=== PATIENT | male | born 1955 | race Caucasian/White ===

== ENCOUNTER 2017-05-20 07:52 | Observation (INO) | payer OTHER ==
--- NOTE | ~2017-05-20 | HEMODYNAMI ---
PATIENT:JAYSON PRUITT MEDICAL RECORD: [id number] : 53 LOCATION:[facility] D.2114 ADMISSION DATE: 05/20/17 Generatedon:05/21/20179:34 Patient name: JAYSON PRUITT Patient #: [id number] SSN: : 1955 Date of study: 05/21/2017 Page: Of Hemodynamic Procedure Report Patient Data Patient Demographics Procedure consent was obtained First Name: JAYSON Gender: Male Last Name: EDMOND : 1955 Middle Initial: E Age: 62 year(s) Patient #: [id number] Race: Unknown Additional ID: [id number] Contact details Address: [address] [place] [address] State: [place] City: [facility] Zip code: [address] Past Medical History Allergies: No known allergies Admission Admission Data Admission Date: 05/20/2017 Admission Time: 10:01 Room #: D.2114 Height (in.): 187.96 BSA: 3.32 (m2) Height (cm.): 477.42 BMI: 2.2 (kg/m2) Weight (lbs.): 110.48 Weight (kg.): 50.11 Procedure Procedure Types Cath Procedure Diagnostic Procedure [facility] w/Coronaries PCI Procedure Coronary Stent Initial Miscellaneous Procedures Moderate Sedation up to 15 minutes Procedure Description Procedure Date Procedure Date: 05/21/2017 Procedure Start Time: 9:18 Procedure End Time: 9:33 Procedure Staff Name Function Rupert Mccarty MD Performing Physician Salvador Nj RT Scrub Nathaniel Valera RN Nurse Abigail House RT Monitor Procedure Data Cath Procedure Fluoroscopy Diagnostic fluoroscopy Total fluoroscopy Time: 4.7 time: 4.7 min min Diagnostic fluoroscopy Total fluoroscopy dose: 590 dose: 590 mGy mGy Contrast Material Contrast Material Type Amount (ml) Isovue 300 68 Entry Location Entry Primary Successful Side Size Upsize Upsize Entry Closure Chance ccessful Closure Location (Fr) 1 (Fr) 2 (Fr) Remarks Device Remarks Radial Right 6 Fr Mechanical tr artery Short Compression Estimated blood loss: 10 ml Diagnostic catheters Device Type Used For End Catheter Placement Diagnostic Terumo 5Fr Procedure [place] 110cm catheter Procedure Complications No complications Procedure Medications Medication Administration Route Dosage Oxygen NC 2 l/min Heparin Flush Bag added to field 2 bags (1000units/500ml NS) 0.9% NaCl I.V. 100 ml/hr Radial Cocktail added to field 1 syringe (Verapomil 2mg/Nitro 400mcg/Heparin 1500units) Fentanyl I.V. 50 mcg Versed I.V. 1 mg Radial Cocktail I.A. 1 syringe (Verapomil 2mg/Nitro 400mcg/Heparin 1500units) Fentanyl I.V. 50 mcg Versed I.V. 1 mg Heparin Bolus I.V. 5000 units Integrilin (Bolus I.V. 10.2 ml 2mg/ml) Integrilin (Bolus wasted 9.8 ml 2mg/ml) Plavix P.O. 75 mg Hemodynamics Rest BSA: 3.32 (m2) O2 Consumption: Estimated: 377.78 (ml/min) O2 Consumption indexed : Estimated:113.79 (ml/min/m) Heart Rate: 62 (bpm) Snapshots Pre Cath Intra NCS Post Cath Vital Signs Time Heart Resp SPO2 etCO2 NIBP (mmHg) Rhythm Pain Sedation Rate (ipm) (%) (mmHg) Status Level (bpm) 8:53:36 61 18 99 0 137/88(109) NSR 0 (11) 10(A) , No pain 8:58:26 64 18 98 33 145/87(117) NSR 0 (11) 10(A) , No pain 9:03:15 63 21 97 33 140/83(120) NSR 0 (11) 10(A) , No pain 9:08:04 61 19 96 10.5 133/89(105) NSR 0 (11) 10(A) , No pain 9:12:51 60 17 95 18 138/79(104) NSR 0 (11) 10(A) , No pain 9:17:35 62 16 94 30 118/78(97) NSR 0 (11) 10(A) , No pain 9:22:18 68 18 93 32.2 110/66(92) NSR 0 (11) 9(A) , No pain 9:27:01 69 18 93 9.7 117/73(86) NSR 0 (11) 9(A) , No pain 9:32:24 64 18 94 34.5 128/75(101) NSR 0 (11) 9(A) , No pain Medications Time Medication Route Dose Verified Delivered Reason Notes Effectiveness by by 9:04:12 Oxygen NC 2 l/min Rupert Armstrong Per physician St. Dk Valera RN, MD 9:04:25 Heparin Flush added 2 bags Rupert Armstrong used for Bag to St. Dk Valera RN procedure (1000units/500ml field CHRISTENSEN NS) 9:04:36 0.9% NaCl I.V. 100 Rupert Armstrong Per physician ml/hr St. Dk Valera RN, MD 9:04:46 Radial Cocktail added 1 Rupert Armstrong used for (Verapomil to syringe St. Dk Valera RN procedure 2mg/Nitro field CHRISTENSEN 400mcg/Heparin 1500units) 9:18:05 Fentanyl I.V. 50 mcg Rupert Armstrong for sedation St. Dk Valera RN, MD 9:18:11 Versed I.V. 1 mg Rupert Armstrong for sedation St. Dk Valera RN, MD 9:20:34 Radial Cocktail I.A. 1 Rupert Rupert for (Verapomil syringe St. Dk Mccarty vasodilation 2mg/Ru CHRISTENSEN MD 400mcg/Heparin 1500units) 9:20:42 Fentanyl I.V. 50 mcg Rupert Armstrong for sedation St. Dk Valera RN, MD 9:20:49 Versed I.V. 1 mg Rupert Armstrong for sedation St. Dk Valera RN, MD 9:25:55 Heparin Bolus I.V. 5000 [address] for units St. Dk Valera RN anticoagulation 9:26:18 Integrilin I.V. 10.2 ml Rupert Armstrong for (Bolus 2mg/ml) St. Dk Valera RN antiplatelet therapy 9:26:28 Integrilin wasted 9.8 ml Rupert Armstrong for (Bolus 2mg/ml) St. Dk Valera RN antiplatelet therapy 9:31:58 Plavix P.O. 75 mg Ru[address] Armstrong for St. Dk Valera RN antiplatelet therapy Procedure Log Time Note 8:30:03 Nathaniel Valera RN sent for patient. Start room use. 8:30:55 Patient Height : 187.96 inches 8:31:02 Patient Weight : 110.48 lbs 8:31:18 Diagnostic Cath Status : Elective 8:46:14 Time tracking: Regular hours 8:46:18 Plan of Care:Hemodynamics will remain stable., Cardiac rhythm will remain stable., Comfort level will be maintained., Respiratory function will remain adequate., Patient/ family verbilizes understanding of procedure., Procedure tolerated without complication., Recovers from procedure without complications.. 8:46:31 Patient received from PCU to CCL 1 Alert and oriented. Tansferred to table in Supine position. 8:46:33 Warm blankets applied, and dianelys hugger turned on for patient comfort. 8:46:33 Correct patient and procedure confirmed by team. 8:46:34 Signed procedure consent form obtained from patient. 8:46:35 ECG and BP/O2 sat monitors applied to patient. 8:52:29 Vital chart was started 9:00:34 Baseline sample Acquired. 9:00:38 Rhythm: sinus rhythm 9:00:40 Full Disclosure recording started 9:00:49 H&P Date Dictated: 05/20/2017 Within 30 days and on chart.. 9:00:53 Pre-procedure instructions explained to patient. 9:00:56 Family in patients room. 9:00:59 Patient NPO since Midnight. 9:01:08 Patient allergic to No known allergies 9:01:12 Was the patient premedicated? Yes 9:01:13 Is patient on blood thinner?Yes 9:01:16 ACC The patient was administered the following blood thiners within the last 24 hours: ACCAspirin 9:01:18 Patient diabetic? No. 9:01:22 Snore? Yes 9:01:23 Sleep apnea? No 9:01:32 Patient pain scale 0/10 ?. 9:01:39 IV patent on arrival in right forearm with 0.9% NaCl at O. 9:01:43 Lab results completed and on chart. 9:01:48 Right Radial & Right Groin area was prepped with chlora-prep and draped in sterile fashion 9:01:49 Alarms reviewed by R. N. 9:01:50 Sharps counted by scrub and verified by R.N. 9:01:51 Physician paged 9:04:12 Oxygen 2 l/min NC was administered by Nathaniel Valera RN; Per physician; 9:04:25 Heparin Flush Bag (1000units/500ml NS) 2 bags added to field was administered by Nathaniel Valera RN; used for procedure; 9:04:36 0.9% NaCl 100 ml/hr I.V. was administered by Nathaniel Valera RN; Per physician; 9:04:46 Radial Cocktail (Verapomil 2mg/Nitro 400mcg/Heparin 1500units) 1 syringe added to field was administered by Nathaniel Valera RN; used for procedure; 9:17:30 Physician arrived 9:17:31 --------ALL STOP TIME OUT------ 9:17:32 Final Timeout: patient, procedure, and site verified with staff and physician. All members of the team are in agreement. 9:17:41 Right Radial & Right Groin site verified by team. 9:17:45 Sedation plan: IV Moderate Sedation Versed, Fentanyl 9:17:57 Use device set Radial Dx 9:18:02 Procedure started. 9:18:05 Fentanyl 50 mcg I.V. was administered by Nathaniel Valera RN; for sedation; 9:18:11 Versed 1 mg I.V. was administered by Nathaniel Valera RN; for sedation; 9:18:14 Local anesthetic to right radial artery with Lidocaine 2% by Rupert Mccarty MD.INITIAL ACCESS ONLY 9:18:28 A 6 Fr Short sheath was inserted into the Right Radial artery 9:19:20 Acist Syringe opened to sterile field. 9:19:20 Medline Cath Pack opened to sterile field. 9:19:21 Bag Decanter opened to sterile field. 9:19:21 Terumo 6Fr Slender Glidesheath opened to sterile field. 9:19:21 St Champ 260cm J .035 wire opened to sterile field. 9:19:22 Acist Hand Control opened to sterile field. 9:19:22 Acist Manifold opened to sterile field. 9:19:23 Tegaderm 4 x 4 opened to sterile field. 9:19:23 MBrace Wrist Support opened to sterile field. 9:20:34 Radial Cocktail (Verapomil 2mg/Nitro 400mcg/Heparin 1500units) 1 syringe I.A. was administered by Rupert Mccarty MD; for vasodilation; 9:20:35 A Diagnostic Terumo 5Fr [place] 110cm catheter was advanced over the wire and used for Procedure. 9:20:42 Fentanyl 50 mcg I.V. was administered by Nathaniel Valera RN; for sedation; 9::49 Versed 1 mg I.V. was administered by Nathaniel Valera RN; for sedation; 9::49 RCA angiography performed. 9:21:02 LCA angiography performed. 9:22:19 Catheter removed. 9:23:18 Proceeding to intervention. 9:23:28 Cordis 6FR XBLAD 3.5 guide catheter opened to sterile field. 9:23:44 [employer] BasixCompak Inflation Kit opened to sterile field. 9:23:45 Jacob [place] 300cm 0.014 guide wire opened to sterile field. 9::58 6 Fr XBLAD 3.5 guide catheter was inserted over the wire 9:24:02 COUG wire advanced. 9::53 Wire advanced across lesion. 9:25:55 Heparin Bolus 5000 units I.V. was administered by Nathaniel Valera RN; for anticoagulation; 9::18 Integrilin (Bolus 2mg/ml) 10.2 ml I.V. was administered by Nathaniel Valera RN; for antiplatelet therapy; 9::28 Integrilin (Bolus 2mg/ml) 9.8 ml wasted was administered by Nathaniel Valera RN; for antiplatelet therapy; 9:29:47 Inflation Number: 1 A Bassem OTW 3.0 x 26 stent was prepped and advanced across the Mid LAD. The stent was deployed at 14 STACEY for 0:33 (min:sec). 9:30:16 Wire removed. 9:30:17 Guide catheter removed. 9:30:26 Terumo TR Band Standard opened to sterile field. 9:31:27 Sheath removed intact; hemostasis achieved with Mechanical Compression to the Right Radial artery. 9:31:32 Procedure ended.(Physican Out) 9:31:48 Fluoroscopy time 04.70 minutes. ::53 Fluoroscopy dose: 590 mGy 9::53 Flurop Dose total: 590 9::58 Plavix 75 mg P.O. was administered by Nathaniel Valera RN; for antiplatelet therapy; 9:31:59 Contrast amount:Isovue 300 68ml. 9:32:01 Sharps counted by scrub and verified by R.N. 9:32:06 TR band inflated with 10cc of air. 9:32:07 Insertion/operative site no bleeding no hematoma. 9:32:10 Post Procedure Pulses reassessed and unchanged 9:32:17 Post procedure rhythm: unchanged. 9:32:20 Estimated blood loss: 10 ml 9:32:26 Post procedure instruction explained to patient.Patient verbalizes understanding. 9:32:37 Procedure type changed to Cath procedure, Diagnostic procedure, LHC, LHC w/Coronaries, PCI procedure, Coronary Stent Initial, Miscellaneous Procedures, Moderate Sedation up to 15 minutes 9:32:41 Procedure and supply charges have been captured, reviewed, submitted and are correct. 9:32:48 Procedure Complication : No complications 9:32:53 Vital chart was stopped 9:32:56 See physician's report for complete and final results. 9:32:59 Report given to [facility]. 9:33:05 Patient transfered to [facility] with Bed. 9:33:08 Procedure ended. 9:33:08 Full Disclosure recording stopped 9:33:11 End room use (Document Last) Intervention Summary Intervention Notes Time ActionType Lesion and Equipment Action# Pressure Duration Attributes Used 9:29:47 Place stent Mid LAD [place] OTW 1 14 00:33 3.0 x 26 stent Device Usage Item Name Manufacture Quantity Catalog Hospital Part Current Minima l Lot# / Number Charge Number Stock Stock Serial# Code Acist Acist 1 77028 447850 353980 393034 20 Syringe Medical Systems Inc Medline Cardinal 1 [id number] 943692 65719 007336 5 Cath Pack Health Bag Microtek 1 042793 19043 542217 5 [employer] Terumo 6Fr Terumo 1 [id number] 933049 441943 024025 [address] Champ 1 623769 085957 958903 930133 30 260cm J .035 wire Acist Hand Acist 1 32234 043376 473594 177858 5 Control Medical Systems Inc Acist Acist 1 50596 766793 093642 081535 5 Manifold Medical Systems Inc Tegaderm 4 3M 1 1626W 488650 207871 809421 5 x 4 MBrace Advanced 1 140-0250-00 621695 67001 531492 5 Wrist Vascular Support Dynamics Diagnostic Terumo 1 65-7231 040238 134224 460705 5 Terumo 5Fr [place] 110cm catheter Cordis 6FR Cardinal 1 [id number] 491888 502487 630557 10 XBLAD 3.5 Health guide catheter [facility] 1 [id number] 314584 478597 938385 15 BasixCompak Medical Inflation Kit Jacob Jacob 1 [id number] 392193 217713 029541 1 [place] Vascular 300cm 0.014 guide wire [place] OTW Medtronic 1 [id number] 037762 4722014 758492 5 [id number] 3.0 x 26 stent Terumo TR Terumo 1 [id number] 845249 231269 561575 40 Band Standard Signature Audit [place] Stage Time Signature Unsigned Intra-Procedure 05/21/2017 Abigail House 9:34:46 AM RT(R) Signatures Monitor : Abigail House Signature : RT Date : Time : [place] [address] [place] [address]
[~2017-05-20 07:52] MED LIST: BAYER CHEWABLE81 MG PO; BETAPACE 80 MG80 MG PO; PRAVASTATIN SOD10 MG PO; XARELTO20 MG PO
[2017-05-20 08:34] LABS: BASOPHILS 0 % (0-2); EOSINOPHILS 2.2 % (0-7); HEMATOCRIT 46.4 % (42.0-54.0); HEMOGLOBIN 15.4 g/dL (13.5-17.5); IMMATURE GRANULOCYTES 0.3 % (0-5); LYMPHOCYTES 11.1 % (15-50); MCH 30.7 pg (26.0-34.0); MCHC 33.2 g/dL (31.0-37.0); MCV 92.6 fL (80.0-100.0); MEAN PLATELET VOLUME 9.9 fL (7.4-10.4); NEUTROPHILS 79.4 % (40-80); RBC 5.01 10x6/uL (4.20-6.10); WBC 6.7 10x3/uL (4.8-10.8)
[2017-05-20 08:35] LABS: PLATELET COUNT 128 10x3/uL (130-400)
[2017-05-20 08:39] LABS: APTT 24.3 SECONDS (22.8-39.4); INR 1.04 (0.85-1.17); PROTIME 13.5 SECONDS (11.6-15.0)
[2017-05-20 08:43] LABS: ALBUMIN 3.6 g/dL (3.4-5.0); ALKALINE PHOSPHATASE 106 U/L (46-116); ALT (SGPT) 65 U/L (10-68); BILIRUBIN - TOTAL 0.89 mg/dL (0.2-1.3); CALC OSMOLALITY 286 mosm/kg (275-300); CALCIUM 8.8 mg/dL (8.5-10.1); CARBON DIOXIDE 24.8 mmol/L (21.0-32.0); CHLORIDE - SERUM 109 mmol/L (98-107); CREATININE - SERUM 1.1 mg/dL (0.6-1.3); GLUCOSE 119 mg/dL (74-106); POTASSIUM - SERUM 4.8 mmol/L (3.5-5.1); PROTEIN - SERUM 7.4 g/dL (6.4-8.2); SODIUM 142 mmol/L (136-145); UREA NITROGEN 21 mg/dL (7-18); eGFR NON AFRICAN AMERICAN 72 mL/min (90-120)
[2017-05-20 08:54] LABS: CKMB 0.8 U/L (0.0-3.6); CREATINE KINASE 83 UL (21-232); TROPONIN-I < 0.017 ng/mL (0.000-0.060)
--- NOTE | 2017-05-20 11:10 | NUR ---
RECEIVED PT VIA W/C FROM ER TO ROOM 2113 RESP UNLABORED SKIN W/D DENIES ANY CHEST PAIN TELEMETRY APPLIED SR RATE 61 NAD NOTED WILL CONTINUE TO MONITOR
[2017-05-20 11:24] VITALS: BP 133/78
[2017-05-20] MEDS ORDERED: LOPRESSOR25 MG PO (12:08)
[2017-05-20 14:22] LABS: CREATINE KINASE 72 UL (21-232)
[2017-05-20 14:23] LABS: TROPONIN-I < 0.017 ng/mL (0.000-0.060)
[2017-05-20 15:31] VITALS: BP 133/78; BMI 30.1
[2017-05-20 16:00] VITALS: BP 128/80
[2017-05-20 20:31] LABS: CKMB 0.6 U/L (0.0-3.6); CREATINE KINASE 72 UL (21-232); TROPONIN-I < 0.017 ng/mL (0.000-0.060)
--- NOTE | 2017-05-20 21:40 | NUR ---
INITIAL ROUNDS COMPLETED AT 1915 HRS. PT DENIED ANY DISCOMFORT. ASSESSMENT COMPLETED 1950 HRS. VSS. SR PER CM HR 66. IV TO RAC AUSTEN. REX CTA. PM MEDS GIVEN. PT STATED HAD HAD DIARRHEA X2. PM SNACK SERVED. PERMITS FOR PSYCHIATRIC HOSPITAL EXPLAINED TO PT. PERMITS SIGNED. PT CURRENTLY WATCHING TV. WILL CONTINUE TO MONITOR. SR UP X2, CALL LIGHT PAULINA REYES.
[2017-05-20 22:15] VITALS: BP 138/76
[2017-05-21] VITALS: BP 116/73
--- NOTE | 2017-05-21 00:14 | NUR ---
PT RESTING WITH EYES CLOSED. RESP EVEN AND REGULAR. SR UP X2, CALL LIGHT WITHIN REACH.
--- NOTE | 2017-05-21 02:20 | NUR ---
PT STATES HAS HAD SOME DIARRHEA. WILL CONTINUE TO MONITOR.
[2017-05-21 02:36] LABS: BASOPHILS 0 % (0-2); EOSINOPHILS 1.5 % (0-7); HEMATOCRIT 50.8 % (42.0-54.0); HEMOGLOBIN 16.9 g/dL (13.5-17.5); IMMATURE GRANULOCYTES 0.2 % (0-5); LYMPHOCYTES 13.5 % (15-50); MCH 30.7 pg (26.0-34.0); MCHC 33.3 g/dL (31.0-37.0); MCV 92.2 fL (80.0-100.0); MONOCYTES 6.8 % (2-11); PLATELET COUNT 161 10x3/uL (130-400); RBC 5.51 10x6/uL (4.20-6.10); RDW 13.9 % (11.5-14.5); WBC 5.5 10x3/uL (4.8-10.8)
[2017-05-21 03:01] LABS: CALC OSMOLALITY 277 mosm/kg (275-300); CALCIUM 9.3 mg/dL (8.5-10.1); CARBON DIOXIDE 20.3 mmol/L (21.0-32.0); CHLORIDE - SERUM 106 mmol/L (98-107); CKMB 0.5 U/L (0.0-3.6); CREATINE KINASE 68 UL (21-232); GLUCOSE 127 mg/dL (74-106); POTASSIUM - SERUM 4.7 mmol/L (3.5-5.1); SODIUM 137 mmol/L (136-145); TROPONIN-I < 0.017 ng/mL (0.000-0.060); UREA NITROGEN 18 mg/dL (7-18); eGFR NON AFRICAN AMERICAN 80 mL/min (90-120)
[2017-05-21 04:00] VITALS: BP 114/69
--- NOTE | 2017-05-21 04:43 | NUR ---
PT RESTING WITH EYES CLOSED. RESP EVEN AND REGULAR. SR UP X2, CALL LIGHT WITHIN REACH.
--- NOTE | 2017-05-21 06:23 | NUR ---
HIBICLENS SHOWER DONE. PT STATED WHEN HE URINATED THE URINE WAS BLOOD TINGED. PT DID NOT SAVE SPECIMEN. VSS THROUGHOUT NIGHT. SR/SB PER CM. DENIES ANY DISCOMFORT EXCEPT DIARRHEA. NPO FOR AM LHC. NEEDS MET; WILL CONTINUE TO MONITOR.
--- NOTE | 2017-05-21 07:30 | NUR ---
RECEIVED PT IN BED AAOX4 RESP UNLABORED DENIES ANY NEEDS OR DISCOMFORT AT THIS TIME
[2017-05-21 08:00] VITALS: BP 110/74
--- NOTE | 2017-05-21 09:40 | HP ---
PATIENT: JAYSON PRUITT MEDICAL RECORD: [id number] ACCOUNT: [id number] LOCATION:[address] : 53 ADMISSION DATE: 05/20/17 HISTORY AND PHYSICAL EXAMINATION HISTORY OF PRESENT ILLNESS: A 62-year-old gentleman with a known history of coronary artery disease, status post intervention by Dr. Nolasco DC, history of hypertension. Woke this morning with chest tightness and pressure, marked nausea, marked diaphoresis. Presented to the ER with pain, was promptly admitted with nitroglycerin. We are asked to see him concerning his cardiovascular status. PAST MEDICAL HISTORY: Includes: 1. History of hypertension. 2. Dyslipidemia. ALLERGIES: SHELLFISH. MEDICATIONS: Aspirin 81 every day, pravastatin 10 every day, metoprolol 25 b.i.d. SOCIAL HISTORY: . Lives here in [place]. Still works part-time. He is a nonsmoker. He takes care of his ADLs. REVIEW OF SYSTEMS: The patient reports easy bruising but reports no swollen glands. The patient reports no fever, no night sweats, no significant weight gain, no significant weight loss. No significant exercise tolerance. The patient reports no dry eyes, no irritation, no vision change. Patient reports no difficulty hearing and no ear pain. Patient reports no frequent nose bleeds or nose and sinus problems. Patient reports on arm pain on exertion. No shortness of breath while lying down. No history of heart murmur. Patient reports no cough, no wheezing or coughing up blood. Patient reports no abdominal pain, no vomiting. Normal appetite. No diarrhea and not vomiting blood. No nausea and no constipation. Patient reports no incontinence. No difficulty urinating. No hematuria. No increased frequency. Patient reports no muscle aches. No weakness, no arthralgias, no back pain. No swelling of the extremities. Patient reports no abnormal mole, no jaundice, no rashes. Reports no loss of consciousness. No weakness and no numbness. No seizures, dizziness, or headaches. The patient reports no depression, no sleep disturbance, feeling safe in a relationship and no alcohol abuse. Patient reports on fatigue. Reports no runny nose or sinus pressure. No itching, no hives, and no frequent sneezing. PHYSICAL EXAMINATION: GENERAL: Pleasant gentleman, in no acute distress. VITAL SIGNS: Blood pressure 133/78, pulse 61 and regular. HEENT: Normocephalic, atraumatic. NECK: No JVD or bruit. HEART: Regular. LUNGS: [place] are clear. ABDOMEN: Soft, nontender. EXTREMITIES: Pulses 2+. There is no edema. DIAGNOSTIC DATA: ECG without acute change. HISTORY AND PHYSICAL [id number] JAYSON PRUITT IMPRESSION: Acute coronary syndrome. PLAN: Diagnostic angiography, intervention based on the above. TRANSINT:[id number] Voice Confirmation ID: [id number] DOCUMENT ID: [id number] WALTER BOO MD at 0940 CC: [id number] DICTATION DATE: 05/20/17 1213 COLLIERY CLERK: 05/20/17 1248 ADM IN [place] [id number] [place] [id number]
--- NOTE | 2017-05-21 09:50 | NUR ---
RECEIVED PT BACK FROM [employer]STER PRINTED [employer] [facility]ARDS PPPX4 RESP UNLABORED RIGHT WRIST NOTED WITH TR BAND INTACT AND BRACE ON NAD NOTED
[2017-05-21 12:00] VITALS: BP 110/71
[2017-05-21] MEDS ORDERED: PLAVIX75 MG PO (13:42)
--- NOTE | 2017-05-21 14:22 | NUR ---
RECEIVED PT FROM ICU VIA BED IN STABLE CONDITION TRANSFERED INTO MED2 BED PT TOLERATED WELL TELEMETRY APPLIED RATE 60 SR NAD NOTED MAXIMILIAN CONTINUE TO MONITOR
--- NOTE | 2017-05-21 15:30 | NUR ---
REVIEWED DISCHARGE INSTRUCTIONS WITH PT AND BOTH STATE UNDERSTANDING COPY GIVEN DCD SALINE LOCK TO RAC WITH IV CATHETER INTACT SITE FREE OF REDNESS OR EDEMA PT DISCHARGED HOME IN STABLE CONDITION LEFT VIA W/C WITH ALL PERSONAL BELONGINGS
--- NOTE | 2017-05-22 11:08 | DS ---
PATIENT:JAYSON PRUITT :53 MEDICAL RECORD: [id number] DISCHARGE SUMMARY ADMISSION DATE: 05/20/17 DISCHARGE DATE: 05/21/17 DATE OF ADMISSION: 05/20/2017 DATE OF DISCHARGE: 05/21/2017 PROBLEM LIST: 1. Acute coronary syndrome. 2. Hypertension. 3. Dyslipidemia. BRIEF HISTORY AND HOSPITAL COURSE: Admitted with acute coronary syndrome, rest angina, found to have a tight LAD disease, who underwent stenting with medicated stent, discharged home in good condition, Plavix for a year, aspirin chronically. Continue statin and beta-blockade. TRANSINT:[id number] Voice Confirmation ID: [id number] DOCUMENT ID: [id number] WALTER BOO MD at 1108 CC: [id number] DICTATION DATE: 05/21/17 0937 MACHINE STAMPER: 05/21/171901 DIS IN 05/21/17 [facility] [address] [place] [address]
--- NOTE | 2017-05-22 11:08 | OP ---
PATIENT NAME: JAYSON PRUITT MEDICAL RECORD: [id number] :53 LOCATION:D.M2 D.2114 ADMISSION DATE:05/20/17 SURGEON: WALTER BOO MD DATE OF OPERATION: 05/21/2017 PROCEDURE: Left heart catheterization, selective coronary angiography, right radial approach. CATHETERS: [place] catheter. The procedure was well tolerated and the patient returned to kee, sheath removed. TR band placed. FINDINGS: Left ventriculography not performed. CORONARY ANATOMY: LEFT MAIN: Left main is free of disease. LAD: Shows a diffuse long stenosis of 90%. This involved the entire course of the stent. CIRCUMFLEX: Circumflex is codominant system, free of disease. RIGHT CORONARY ARTERY: Again, codominant, free of disease. IMPRESSION: Restenosis suspect medicated stent. PLAN: Intervention momentarily. DESCRIPTION OF PROCEDURE: Using indwelling sheath, an XB LAD 3.5 guiding catheter provided excellent guide catheter support followed by 300 cm [place] XT wire was placed across the tightly occluded LAD down the first vessel. Stent deployed was a 3.0 x 26 mm Bassem drug-eluting stent up to 14 atmospheres. This showed excellent resolution of diffuse 90% stenosis, no significant residual. RENEE flow was 3 throughout the procedure. Integrilin was used during the case. Sheath was closed with TR band. TRANSINT:[id number] Voice Confirmation ID: [id number] DOCUMENT ID: [id number] WALTER BOO MD at 1108 CC: [id number] DICTATION DATE: 05/21/17 0936 CURING PICKLING PACKER: 05/21/17 1328 DIS IN 05/21/17 [place] [id number] [place] [address]
== END 2017-05-21 15:30 | disposition home or self-care (01) ==
LOC: D.ER 07:52 → D.M2 10:01 → OBSVTIME 10:01 → D.M2 05-21 15:30
PROVIDERS: Family Medicine; ADMIT Internal Medicine Interventional Cardiology
DX: I25.110 Atherosclerotic heart disease of native coronary artery with unstable angina pectoris (principal); I10 Essential (primary) hypertension; Z95.5 Presence of coronary angioplasty implant and graft; T82.855A Stenosis of coronary artery stent, initial encounter; Y83.8 Other surgical procedures as the cause of abnormal reaction of the patient, or of later complication, without mention of misadventure at the time of the procedure; E78.5 Hyperlipidemia, unspecified

== ENCOUNTER 2018-08-20 23:08 | Emergency (ER) | payer OTHER ==
[~2018-08-20] VITALS: Ht 188 cm; Wt 100.0 kg
[~2018-08-20 23:08] MED LIST changes: +LOPRESSOR25 MG PO; +PLAVIX75 MG PO
[2018-08-20 23:16] VITALS: Ht 188 cm; Wt 100.0 kg
[2018-08-20 23:51] LABS: BASOPHILS 0.2 % (0-2); EOSINOPHILS 0.7 % (0-7); HEMATOCRIT 47.3 % (42.0-54.0); HEMOGLOBIN 16.2 g/dL (13.5-17.5); IMMATURE GRANULOCYTES 0.2 % (0-5); LYMPHOCYTES 14.4 % (15-50); MCH 31.8 pg (26.0-34.0); MCHC 34.2 g/dL (31.0-37.0); MCV 92.9 fL (80.0-100.0); MEAN PLATELET VOLUME 9.4 fL (7.4-10.4); MONOCYTES 5.1 % (2-11); NEUTROPHILS 79.4 % (40-80); PLATELET COUNT 154 10x3/uL (130-400); RBC 5.09 10x6/uL (4.20-6.10); RDW 12.9 % (11.5-14.5); WBC 9.9 10x3/uL (4.8-10.8)
[2018-08-21 00:07] LABS: ALBUMIN 3.7 g/dL (3.4-5.0); ALKALINE PHOSPHATASE 93 U/L (46-116); ALT (SGPT) 23 U/L (10-68); BILIRUBIN - TOTAL 1.02 mg/dL (0.2-1.3); CALC OSMOLALITY 284 mosm/kg (275-300); CALCIUM 8.7 mg/dL (8.5-10.1); CARBON DIOXIDE 30.1 mmol/L (21.0-32.0); CHLORIDE - SERUM 101 mmol/L (98-107); CREATININE - SERUM 1.2 mg/dL (0.6-1.3); GLUCOSE 130 mg/dL (74-106); POTASSIUM - SERUM 4.6 mmol/L (3.5-5.1); PROTEIN - SERUM 7.8 g/dL (6.4-8.2); SODIUM 141 mmol/L (136-145); UREA NITROGEN 18 mg/dL (7-18); eGFR NON AFRICAN AMERICAN 65 mL/min (90-120)
[2018-08-21 00:09] LABS: AMYLASE - SERUM 51 U/L (25-115); LIPASE 124 U/L (73-393)
[2018-08-21 00:13] LABS: TROPONIN-I < 0.017 ng/mL (0.000-0.060)
[2018-08-21] MEDS ORDERED: LOMOTIL 2.5-0.1 EAC1 PO (00:42)
[2018-08-21] MEDS ORDERED: PHENERGAN25 M1 PO (00:42)
[2018-08-21 01:43] VITALS: BP 120/84
== END 2018-08-21 01:43 | disposition home or self-care (01) ==
LOC: D.ER 23:08
PROVIDERS: Family Medicine
DX: A08.4 Viral intestinal infection, unspecified (principal); R11.10 Vomiting, unspecified; R00.1 Bradycardia, unspecified